=== PATIENT | male | born 1985 | race Two or more races ===

== ENCOUNTER 2020-07-09 10:09 | Emergency (ER) | payer BC, OTHER | END 2020-07-09 12:34 | disposition home or self-care (01) | LOC: JVIRT 10:09 | DX: J34.89 Other specified disorders of nose and nasal sinuses (principal); Z11.52 Encounter for screening for COVID-19 | CPT/HCPCS: C9803; G2251-GT; Q3014-GT; U0003 ==

== ENCOUNTER 2024-08-17 17:33 | Emergency (ER) | payer BC ==
[2024-08-17 17:41] VITALS: BP 130/81; PULSE 61; RESP 18; TEMP 98; BMI 31.4
[2024-08-17 19:37] LABS: ABSOLUTE IMMATURE GRANULOCYTES 0.01 x10^3/uL (0.0-0.031); BASOPHILS # 0.08 x10^3/uL (0.01-0.08); EOSINOPHIL % 2.8 % (0.8-7.0); EOSINOPHILS # 0.17 x10^3/uL (0.04-0.54); HEMATOCRIT 41.6 % (40.1-51.0); HEMOGLOBIN 13.7 g/dL (13.7-17.5); MCHC 32.9 g/dl (32.3-36.5); MONOCYTE # 0.52 x10^3/uL (0.30-0.82); MONOCYTE % 8.7 % (5.3-12.2); PLATELET COUNT 242 x10^3/uL (163-337); RDW 11.9 % (12.1-15.9)
[2024-08-17] MEDS ORDERED: ACETAMINOPHEN INJECTION 100 ML ONE (19:56)
[2024-08-17] MEDS ORDERED: METOCLOPRAMIDE HCL INJECTION 10 MG/2 ML VIAL ONE (19:56)
[2024-08-17 20:01] LABS: ALBUMIN 4.1 g/dl (3.4-5.0); BLOOD UREA NITROGEN 20.6 mg/dL (7-18)
[2024-08-17] MEDS: SODIUM CHLORIDE 1,000 ML IV STA (20:02)
[2024-08-17] MEDS: ACETAMINOPHEN 1000 MG/100 ML BAG IVPB ONE (20:02)
[2024-08-17] MEDS: METOCLOPRAMIDE HCL INJECTION 10 MG/2 ML VIAL IVPB ONE (20:03)
[2024-08-17 20:04] LABS: CREATININE 0.9 mg/dL (0.55-1.3)
[2024-08-17 20:05] LABS: BILIRUBIN,TOTAL 0.4 mg/dL (0.2-1); TOT PROT 7.3 g/dl (6.4-8.2)
[2024-08-17 20:55] LABS: HCV DIAGNOSTIC IN-HOUSE W/RFLX NON-REACTIVE (NONREACTIVE); HIV INTERPRETATION NEGATIVE (NEGATIVE)
== END 2024-08-17 21:10 | disposition home or self-care (01) ==
LOC: JER 17:33
PROC: 3E033NZ Introduction of Analgesics, Hypnotics, Sedatives into Peripheral Vein, Percutaneous Approach (ICD-10-PCS; principal; 2024-08-17)
PROC: 3E033GC Introduction of Other Therapeutic Substance into Peripheral Vein, Percutaneous Approach (ICD-10-PCS; 2024-08-17)
PROC: 3E0337Z Introduction of Electrolytic and Water Balance Substance into Peripheral Vein, Percutaneous Approach (ICD-10-PCS; 2024-08-17)
DX: R51.9 Headache, unspecified (principal); R55 Syncope and collapse; R42 Dizziness and giddiness
CPT/HCPCS: 36415; 70450-TC; 80053; 84484; 85025; 86803; 87389; 93005; 93010; 99285-25; J0131